=== PATIENT | male | born 1945 | race Caucasian/White ===

== ENCOUNTER → 2020-11-05 | Outpatient (CLI) | payer MEDICARE, OTHER ==
[~2020-11-05] MED LIST: ECOTRIN81 MG PO; ELIQUIS5 MG PO; GABAPENTIN800 MG PO; HUMALOG MI100 UNIT/3 SQ; K-DUR TAB 20 M20 MEQ PO; KEFLEX CAP 500500 MG PO; LANTUS100 UNIT/1 SQ; LOPRESSOR50 MG PO; MAGOX 400400 MG PO; MULTAQ 400 MG400 MG PO; NORCO 10-325 T1 EACH PO; TIKOSYN250 MCG PO; VANCOCIN 125 M125 MG GT; ZOFRAN ODT 4 MG4 MG SL
== END ==
LOC: HEART 5 09:15
DX: I20.9 Angina pectoris, unspecified (principal); R06.02 Shortness of breath; I08.1 Rheumatic disorders of both mitral and tricuspid valves; I27.20 Pulmonary hypertension, unspecified
CPT/HCPCS: 93306

== ENCOUNTER → 2020-11-30 | Outpatient (CLI) | payer MEDICARE, OTHER | LOC: HEART 5 08:45 | DX: I20.9 Angina pectoris, unspecified (principal) | CPT/HCPCS: 78452; A9502; J2785 ==

== ENCOUNTER 2021-02-09 21:03 | Emergency (ER) | payer MEDICARE, OTHER ==
[2021-02-09 21:53] LABS: HEMOGLOBIN 10.4 gm/dl (14.0-17.5); RED BLOOD COUNT 3.55 M/UL (4.20-5.50); WHITE BLOOD COUNT 8.5 K/UL (4.5-11.0)
[2021-02-09 22:17] LABS: BUN/CREATININE RATIO 17 (0-10)
[2021-02-10] MEDS ORDERED: DOXYCYCLINE HY100 M2 PO (07:21)
== END 2021-02-10 10:30 | disposition home or self-care (01) ==
LOC: ER1 21:03
PROVIDERS: Physician Assistant; Student in an Organized Health Care Education/Training Program
DX: N39.0 Urinary tract infection, site not specified (principal); E11.22 Type 2 diabetes mellitus with diabetic chronic kidney disease; N18.9 Chronic kidney disease, unspecified; E86.0 Dehydration; E87.5 Hyperkalemia; Z20.822 Contact with and (suspected) exposure to COVID-19; I48.91 Unspecified atrial fibrillation; F17.200 Nicotine dependence, unspecified, uncomplicated; Z85.038 Personal history of other malignant neoplasm of large intestine; Z85.51 Personal history of malignant neoplasm of bladder; Z88.1 Allergy status to other antibiotic agents
CPT/HCPCS: 70450; 71045; 80048; 80053; 81001; 82550; 82553; 83874; 84132; 84484; 85025; 93005; 94664; 96374; 99284; J7030; U0002

== ENCOUNTER → 2021-03-04 | Outpatient (CLI) | payer MEDICARE, OTHER ==
[~2021-03-04] MED LIST changes: +DOXYCYCLINE HY100 M2 PO; +HYDROCODON-ACE1 EAC6 PO; +NITROGLYCERIN0.4 MG SL; +RANEXA1000 MG PO; +ROPINIROLE HCL1 MG PO
[2021-03-04 13:13] LABS: HEMOGLOBIN 10.8 gm/dl (14.0-17.5); RED BLOOD COUNT 3.75 M/UL (4.20-5.50); WHITE BLOOD COUNT 8.4 K/UL (4.5-11.0)
== END ==
LOC: LAB 12:50
PROVIDERS: Internal Medicine Cardiovascular Disease
DX: I48.91 Unspecified atrial fibrillation (principal); R53.1 Weakness; R06.02 Shortness of breath; R00.2 Palpitations
CPT/HCPCS: 36415; 80048; 85027; J7040

== ENCOUNTER → 2021-03-05 | Day surgery (SDC) | payer MEDICARE, OTHER | END | disposition home or self-care (01) | LOC: CATH 07:15 → EDSTATUS 07:30 → CATH 07:30 | DX: I48.19 Other persistent atrial fibrillation (principal); E11.9 Type 2 diabetes mellitus without complications; N18.9 Chronic kidney disease, unspecified; K21.9 Gastro-esophageal reflux disease without esophagitis; E78.5 Hyperlipidemia, unspecified; F17.200 Nicotine dependence, unspecified, uncomplicated; Z79.01 Long term (current) use of anticoagulants; Z20.822 Contact with and (suspected) exposure to COVID-19; Z79.899 Other long term (current) drug therapy; Z88.8 Allergy status to other drugs, medicaments and biological substances; Z85.51 Personal history of malignant neoplasm of bladder | CPT/HCPCS: 82962; 92960; 93005; J1200; J1742; J2250; J2310; J3010; J7040; U0002 ==

== ENCOUNTER 2021-04-04 12:57 | Emergency (ER) | payer MEDICARE, OTHER ==
[2021-04-04 13:42] LABS: HEMOGLOBIN 9.5 gm/dl (14.0-17.5); RED BLOOD COUNT 3.25 M/UL (4.20-5.50); WHITE BLOOD COUNT 8.2 K/UL (4.5-11.0)
[2021-04-04 16:39] LABS: BUN/CREATININE RATIO 22 (0-10)
== END 2021-04-04 18:10 | disposition home or self-care (01) ==
LOC: ER1 12:57
PROVIDERS: Family Medicine
DX: R10.9 Unspecified abdominal pain (principal); R07.9 Chest pain, unspecified; D64.9 Anemia, unspecified; Z20.822 Contact with and (suspected) exposure to COVID-19; E11.22 Type 2 diabetes mellitus with diabetic chronic kidney disease; N18.9 Chronic kidney disease, unspecified; E87.5 Hyperkalemia; Z79.01 Long term (current) use of anticoagulants; E07.9 Disorder of thyroid, unspecified; I48.91 Unspecified atrial fibrillation
CPT/HCPCS: 71045; 80048; 80053; 81001; 82550; 82553; 82962; 83605; 83690; 84484; 85025; 85610; 87077; 87086; 87186; 93005; 96374; 96375; 96376; 99285; U0002

== ENCOUNTER 2021-06-25 21:47 | Emergency (ER) | payer MEDICARE, OTHER | END 2021-06-26 00:29 | disposition home or self-care (01) | LOC: ER1 21:47 | PROVIDERS: Physician Assistant | DX: I13.10 Hypertensive heart and chronic kidney disease without heart failure, with stage 1 through stage 4 chronic kidney disease, or unspecified chronic kidney disease (principal); N18.9 Chronic kidney disease, unspecified; R79.9 Abnormal finding of blood chemistry, unspecified; Z85.038 Personal history of other malignant neoplasm of large intestine; Z85.51 Personal history of malignant neoplasm of bladder | CPT/HCPCS: 80053; 83735; 93005; 99283 ==

== ENCOUNTER 2021-07-02 21:52 | Emergency (ER) | payer MEDICARE, MEDICAID ==
[2021-07-03 00:49] LABS: HEMOGLOBIN 9.9 gm/dl (14.0-17.5); RED BLOOD COUNT 3.46 M/UL (4.20-5.50); WHITE BLOOD COUNT 7.6 K/UL (4.5-11.0)
[2021-07-03 01:26] LABS: BUN/CREATININE RATIO 16 (0-10)
== END 2021-07-03 06:48 | disposition home or self-care (01) ==
LOC: ER1 21:52
PROVIDERS: Student in an Organized Health Care Education/Training Program
DX: R07.9 Chest pain, unspecified (principal); E87.5 Hyperkalemia; I10 Essential (primary) hypertension; F17.210 Nicotine dependence, cigarettes, uncomplicated; Z85.038 Personal history of other malignant neoplasm of large intestine; Z85.51 Personal history of malignant neoplasm of bladder
CPT/HCPCS: 71045; 80053; 82550; 82553; 83880; 84132; 84484; 85025; 93005; 94664; 96374; 96375; 99285; J1100; J1940; J7030